=== PATIENT | female | born 1950 | race Caucasian/White ===

== ENCOUNTER 2016-12-24 15:47 | Emergency (ER) | payer OTHER ==
--- NOTE | ~2016-12-24 | CT71 ---
[facility] A Service of [facility] RADIOLOGY TEXT RESULTS PATIENT: RAHEEM PERDOMO LOCATION: SED : 54 UNIT #: [id number] AGE: [address]: Jyotsna Miranda APRN SEX: F ORDER DR: [id number] [address] [address] [id number] E MR#: [id number] Acc #: [id number] NAME: RAHEEM PERDOMO : 1950 SEX: F STUDY DATE/TIME: 12/24/2016 17:04 UNIT: SED ROOM: STUDY DESCRIPTION: CT Head Wo Contrast Attending Physician: Jyotsna Miranda A.P.R.N. Ordering Physician: Jyotsna Ramires A.P.R.N. Primary Care Physician: Job Prieto M.D. MEDICAL IMAGING REPORT This report is preliminary unless electronic signature is present. EXAM CT head without contrast, 12/24/2016 HISTORY 66-year-old female with head pain status post fall out of chair today. COMPARISON None TECHNIQUE Routine unenhanced axial images performed through the brain. This CT exam was performed with one or more of the following radiation dose reduction techniques: automatic exposure control, adjustment of mA and/or kV according to patient size, and iterative reconstruction. FINDINGS No hemorrhage, acute infarction, mass lesion, or abnormal extraaxial fluid collection. No midline shift or focal mass effect. Ventricular system normal in size and configuration. No acute bony abnormality. Visualized paranasal sinuses and mastoid air cells are clear. IMPRESSION No acute intracranial abnormality. Dictated by... Raúl Cook M.D. THIS IS AN ELECTRONICALLY VERIFIED REPORT Raúl Cook M.D. at 12/25/2016 10:35 AM RAPHAEL/abdirahman [facility] A Service of [facility] RADIOLOGY TEXT RESULTS PATIENT: RAHEEM PERDOMO LOCATION: SED : 54 UNIT #: [id number] AGE: [address]: Jyotsna Miranda APRN SEX: F ORDER DR: TD: 12/25/2016 08:51 JOB #: [id number] MEDICAL IMAGING REPORT Page 1 of 1
[~2016-12-24 15:47] MED LIST: ACYCLOVIR; ADVAIR 100-501 EACH IH; ASPIRINEC PO; CALCIUM 5001 TAB PO; DIOVAN PO; DIOVAN160 MG PO; ECOTRIN81 M1 PO; HYDROCHLOROTHIA25 MG PO; K-DUR20 ME1 PO; LORATADINE PO; LORTAB 7.5-5001 TAB PO; MOBIC15 MG PO; OYSTER SHELL 501 TAB PO; PRILOSEC20 MG PO; PROVENTIL17 GM IH; SINGULAIR PO; TRICOR PO; ZETIA PO; ZOCOR PO
[2016-12-24] MEDS ORDERED: PROTONIX (16:07)
[2016-12-24] MEDS ORDERED: FOSAMAX5 M1 (16:08)
[2016-12-24] MEDS ORDERED: TOPROL XL50 MG (16:08)
[2016-12-24] MEDS ORDERED: MULTIVITAMINS1 EAC3 (16:08)
[2016-12-24] MEDS ORDERED: PROZAC10 M1 (16:08)
== END 2016-12-24 18:18 | disposition home or self-care (01) ==
LOC: SED 15:47
DX: S01.01XA Laceration without foreign body of scalp, initial encounter (principal); Z23 Encounter for immunization; Z79.82 Long term (current) use of aspirin; Z79.899 Other long term (current) drug therapy; Z88.5 Allergy status to narcotic agent; Z88.0 Allergy status to penicillin; W07.XXXA Fall from chair, initial encounter; Y92.009 Unspecified place in unspecified non-institutional (private) residence as the place of occurrence of the external cause
CPT/HCPCS: 12001; 70450; 90471; 90715; 99283